=== PATIENT | male | born 1980 | race Caucasian/White ===

== ENCOUNTER 2024-11-24 13:54 | Outpatient (AMB) | payer OTHER, SELFPAY ==
[2024-11-24 13:59] VITALS: BP 158/92; PULSE 85; O2SAT 98; BMI 43.3
--- NOTE | 2024-11-24 13:59 | MHC.PC.OV ---
Vital Signs 11/24/24 13:59 11/24/24 14:15 Height 6 ft 1 in Weight 328 lb BMI 43.3 BP 158/92 H 140/92 H Blood Pressure Location Lt brachial Lt brachial Position Sitting Sitting Pulse 85 Pulse Source Pulse Oximeter Pulse Oximetry (%) 98 Oxygen Delivery Method Room Air Intake Visit Reasons: establish care Allergies Penicillins Allergy (Severe, Verified 11/24/24 14:04) Unknown Medication List - Last Reconciled 11/24/24 by Maxi Moura MD blood pressure monitor (Blood Pressure Kit) As directed fluoxetine (Prozac) 20 mg PO DAILY omeprazole 20 mg PO DAILY Tobacco use date assessed: 11/24/24 Dental Screening Dental Screen Date: 11/24/24 Did you have a dental visit in the last 12 months?: No Did you have a dental problem in the last 6 months where you did not have access to dental care?: No Was dental information given to patient?: No PFSH Family History (Updated 11/24/24 @ 14:22 by Maxi Moura MD) Mother Hypertension Father Heart attack Pancreatic cancer Son No problems noted. Son No problems noted. Son No problems noted. Daughter No problems noted. Daughter No problems noted. Maternal Grandfather Heart attack Paternal Grandfather Heart attack Social History (Updated 11/24/24 @ 14:25 by Maxi Moura MD) Housing: Other Housing Other:: Residential Alcohol intake: current Comment: 2-3 a month2-3 drinks Patient Tobacco Use Status: Former Tobacco user Tobacco use type: Cigarette Years Smoked: quit 2009 smoked for 21 years. smoke pot e-Cigarette/Vaping Use: Former Use Second Hand Smoke Exposure: Yes service: No Current occupational status: unemployed Current occupational exposures/hazards: No Cognitive needs: No Hearing needs: No Vision needs: No Questionnaire PHQ-9 Over the last 2 weeks, how often have you been bothered by any of the following problems? 1. Little interest or pleasure in doing things: more than half the days 2. Feeling down, depressed, or hopeless: more than half the days 3. Trouble falling or staying asleep, or sleeping too much: several days 4. Feeling tired or having little energy: several days 5. Poor appetite or overeating: not at all 6. Feeling bad about yourself - or that you are a failure or have let yourself or your family down: several days 7. Trouble concentrating on things, such as reading the newspaper or watching television: not at all 8. Moving or speaking so slowly that other people could have noticed. Or the opposite - being so fidgety or restless that you have been moving around a lot more than usual: not at all 9. Thoughts that you would be better off or of hurting yourself in some way: not at all Total score: 7 Depression Screening Interpretation: Positive Depression Screening Done: Yes Source: Developed by Drs. Vamsi Linn, Cyn Atkinson, Aniceto Cuellar and colleagues, with an educational liv from [employer]. Thrive Questionnaire Date Thrive assessed: 11/24/24 I am a: Patient What is your living situation today?: I have a steady place to live Within the past 12 months, did the food you bought not last and you didn't have the money to get more?: Sometimes True Within the past 12 months, did you worry whether your food would run out before you got money to buy more?: Sometimes True Do you have trouble paying for medicines?: Yes Do you have trouble getting transportation to medical appointments?: Yes Do you have trouble paying your heating and electricity bill?: No Do you have trouble taking care of your child, family member or friend?: No Do you have trouble with day-to-day activities such as bathing, preparing meals, shopping, managing finances, etc.?: No Are you currently unemployed and looking for a job?: No Are you interested in more education?: No Please select the resources that you would like help with: Housing/Residential and Transportation Currently or been in a relationship where the following occur: No concerns reported THRIVE Score: 3 AUDIT C Alcohol Use Questionnaire (AUDIT-C) 1. How often do you have a drink containing alcohol?: 2-4 times a month 2. How many drinks containing alcohol do you have on a typical day when you are drinking?: 3 or 4 3. How often do you have six or more drinks on one occasion?: Less than monthly Total Score: 4 KARLA-7 AMB Questionnaire KARLA-7 Date KARLA - 7 assessed: 11/24/24 Feeling nervous, anxious, or on edge: 1 = Several days Not being able to stop or control worryin = Several days Worrying too much about different things: 1 = Several days Trouble relaxin = Several days Being so restless that it is hard to sit still: 1 = Several days Becoming easily annoyed or irritable: 1 = Several days Feeling afraid as if something awful might happen: 1 = Several days Total KARLA-7 score (0-4 normal; 5-9 mild; 10-14 moderate; 15-21 severe): 7 Source: Developed by Drs. Vamsi Linn, Cyn Atkinson, Aniceto Cuellar and colleagues, with an educational liv from [employer]. KARLA-7 Assessment Billing KARLA-7 Assessment Tool: KARLA-7 Assessment 23232 Physical exam (Primary Care) Vital Signs: Last Vital Signs Pulse 85 11/24/24 13:59 BP 140/92 H 11/24/24 14:15 Pulse Ox 98 11/24/24 13:59 Oxygen Delivery Method Room Air 11/24/24 13:59 BMI result Body Mass Index 43.3 Tobacco/Smoking Status: Tobacco use Status Tobacco use date assessed 11/24/24 11/24/24 14:10 Patient Tobacco Use Status Former Tobacco user 11/24/24 14:25 Tobacco use type Cigarette 11/24/24 14:25 e-Cigarette/Vaping Use Former Use 11/24/24 14:25 PHQ-9: PHQ-9 Score PHQ-9: Total score 7 11/24/24 17:46 Depression Screening Interpretation: Positive Thrive Assessment: Date of Thrive Assessment Date Thrive assessed 11/24/24 11/24/24 14:10 Currently or been in a relationship where the following occur: No concerns reported Const General: alert; No acute distress Eyes Conjunctivae: conjunctivae normal Resp Auscultation: clear to auscultation bilaterally Cardio Rate: regular rate Rhythm: regular rhythm GI Inspection: Yes normal to inspection Extrem General: Yes normal to inspection and No edema Coding Level of Care Code New Pt Level 4 (55309) Diagnoses Morbid obesity E66.01 Generalized anxiety disorder F41.1 GERD (gastroesophageal reflux disease) K21.9 Colon cancer screening Z12.11 Hypertension I10 Major depression F32.9 Hypersomnia G47.10 Additional Codes KARLA-7 Assessment Billing - KARLA-7 Assessment Tool: KARLA-7 Assessment 71725 ([id number]) Assessment & Plan Assessment & Plan (1) Morbid obesity: Code(s): E66.01 - Morbid (severe) obesity due to excess calories Category: Medical Plan: Diet and exercise (2) Generalized anxiety disorder: Code(s): F41.1 - Generalized anxiety disorder Category: Medical Plan: Continue with present medication and discussed about counseling and therapy (3) GERD (gastroesophageal reflux disease): Code(s): K21.9 - Gastro-esophageal reflux disease without esophagitis Category: Medical Plan: Avoid the foods that causes that usually spicy foods, tomato products, juices, coffee, soda and foods that your sensitive to. After eating do not lie down, allow 3-4 hours before in lie down. And keep the head of bed above 30 degrees to avoid the acid from going up. (4) Colon cancer screening: Code(s): Z12.11 - Encounter for screening for malignant neoplasm of colon Category: Medical Plan: Patient is reminded about colonoscopy (5) Hypertension: Code(s): I10 - Essential (primary) hypertension Category: Medical (6) Major depression: Comment: [facility]- Code(s): F32.9 - Major depressive disorder, single episode, unspecified Category: Medical (7) Hypersomnia: Code(s): G47.10 - Hypersomnia, unspecified Category: Medical Plan History of Present Illness The patient is a 44-year-old male presenting for management of multiple chronic conditions including systemic lupus erythematosus, generalized anxiety disorder, major depressive disorder, gastroesophageal reflux disease, and hypertension. The patient has a history of systemic lupus erythematosus, which has been a longstanding condition. He is also concerned about obesity, which he acknowledges as a contributing factor to his hypertension and overall health. The patient has been diagnosed with generalized anxiety disorder and major depressive disorder, for which he is currently on medication. He reports attending therapy sessions once a week at [facility]. The patient is also managing gastroesophageal reflux disease with omeprazole. He has been advised to continue his current medication regimen and consider dietary modifications to manage symptoms. Hypertension is a significant concern, with a recent blood pressure reading of 140/92 mmHg. The patient does not monitor his blood pressure at home but has been advised to obtain a home blood pressure monitor. The patient has a family history of heart disease, with both his father and grandfather having suffered heart attacks. He also reports a family history of pancreatic cancer and glaucoma. The patient has a history of smoking, having quit 15 years ago, and currently uses marijuana. He consumes alcohol occasionally, averaging two to three drinks per occasion. Preventative care measures discussed include colon cancer screening, for which he has been reminded to undergo a stool test. Health Maintenance - Colon cancer screening: Patient reminded to undergo stool test. - Blood pressure monitoring: Advised to obtain a home blood pressure monitor. - Dietary modifications: Discussed reducing salt intake and increasing plant-based proteins. - Exercise: Encouraged to engage in regular physical activity despite current living situation challenges. Social History - Family: Lives with spouse and children, including four teenagers and one younger child. - Substance Use: Former smoker, currently uses marijuana, and consumes alcohol occasionally. - Exercise: Limited due to living on the fifth floor, making it difficult to engage in regular physical activity. - Diet: Attempts to reduce salt intake and increase plant-based proteins. Review of Systems - Cardiovascular: Reports hypertension. Denies chest pain or palpitations. - Gastrointestinal: Reports gastroesophageal reflux disease. Denies constipation, reports diarrhea. - Neurological: Denies seizures, reports passing out episodes related to coughing. - Respiratory: Reports coughing episodes leading to syncope. - Musculoskeletal: Reports ankle swelling, especially on the right side. - Psychological: Reports anxiety and depression. Physical Exam General: Cooperative, healthy appearing, comfortable, no acute distress and well developed Orientation: Patient oriented x3 Limitations: No limitations Head: Normal to inspection Ears: Hearing grossly normal bilaterally Nose: Normal external nose present Face and sinus: Normal facial exam Eyes: Appearance normal, both eyes and all related structures Neck: Normal visual inspection and Yes full ROM Respiratory: Normal respiratory effort and able to speak in complete sentences. Clear to auscultation bilaterally Cardiovascular: Regular rate and rhythm. Normal S1 and S2 GI: Normal to inspection. Soft to palpation and nontender. Reports diarrhea, no constipation Skin: No rashes or lesions noted Neuro: Patient oriented x3 Extremities: Normal to inspection. Reports swelling in the right ankle, especially after consuming energy drinks. Results Plan Patient was informed and verbally consented to the use of an ambient scribe for clinic note documentation during this visit. 1. Systemic Lupus Erythematosus The patient will continue current management for systemic lupus erythematosus, with regular follow-ups to monitor disease activity and adjust treatment as necessary. 2. Generalized Anxiety Disorder The patient is advised to continue current medications for anxiety and attend weekly therapy sessions at [facility]. 3. Major Depressive Disorder The patient will maintain current antidepressant therapy and continue weekly therapy sessions. 4. Gastroesophageal Reflux Disease (Gerd) The patient is advised to continue omeprazole and consider dietary modifications to manage symptoms of GERD. 5. Obesity The patient is encouraged to engage in regular physical activity and consider dietary changes to address obesity. 6. Hypertension The patient is advised to obtain a home blood pressure monitor and monitor readings regularly. Dietary modifications and weight management are recommended to help control blood pressure. 7. Sleep Apnea (Suspected) The patient is advised to undergo a sleep study to confirm the diagnosis of sleep apnea and determine appropriate management. 8. Preventative Care: Colon Cancer Screening With Stool Test The patient is reminded to complete the stool test for colon cancer screening as part of preventative care measures. Discussion Notes During the visit, we discussed the management of the patient's chronic conditions, including systemic lupus erythematosus, generalized anxiety disorder, major depressive disorder, gastroesophageal reflux disease, and hypertension. We emphasized the importance of regular monitoring and adherence to prescribed medications. Preventative care measures, such as colon cancer screening, were also highlighted. Patient Instructions - Continue taking all prescribed medications as directed. - Attend weekly therapy sessions at [facility]. - Obtain a home blood pressure monitor and check blood pressure regularly. - Complete the stool test for colon cancer screening. - Engage in regular physical activity and consider dietary changes to manage weight and blood pressure. Orders: Orders Complete Blood Count Auto Diff Today K21.9 - Gastro-esophageal reflux disease without esophagitis Comprehensive Met. Panel Today K21.9 - Gastro-esophageal reflux disease without esophagitis Free T4 (Free Thyroxine) Today K21.9 - Gastro-esophageal reflux disease without esophagitis Thyroid Stimulating Hormone Today K21.9 - Gastro-esophageal reflux disease without esophagitis UA CC w/rflx Micro + Cult Today K21.9 - Gastro-esophageal reflux disease without esophagitis, R30.0 - Dysuria Lipid Panel Today E78.00 - Pure hypercholesterolemia, unspecified, K21.9 - Gastro-esophageal reflux disease without esophagitis Vitamin B12 and Folate Today K21.9 - Gastro-esophageal reflux disease without esophagitis RT home sleep study Today G47.10 - Hypersomnia, unspecified Hemoglobin A1c Today K21.9 - Gastro-esophageal reflux disease without esophagitis Referrals Cologuard Test Z12.11 - Encounter for screening for malignant neoplasm of colon Medications: New blood pressure monitor (Blood Pressure Kit) As directed 1 ea 0RF I10 - Essential (primary) hypertension
[2024-11-24 14:15] VITALS: BP 140/92
== END 2024-11-24 14:53 | disposition home or self-care (01) ==
LOC: HO.HMCH 13:55
PROVIDERS: PCP Internal Medicine; Visit Provider Internal Medicine
DX: K21.9 Gastro-esophageal reflux disease without esophagitis (principal); E66.01 Morbid (severe) obesity due to excess calories; Z68.41 Body mass index [BMI] 40.0-44.9, adult; F41.1 Generalized anxiety disorder; Z12.11 Encounter for screening for malignant neoplasm of colon; I10 Essential (primary) hypertension; F32.9 Major depressive disorder, single episode, unspecified; G47.10 Hypersomnia, unspecified

== ENCOUNTER → 2024-11-24 13:54 | Outpatient (BNVA) | payer OTHER, SELFPAY | PROVIDERS: PCP Internal Medicine; Visit Provider Internal Medicine | DX: F41.1 Generalized anxiety disorder (principal); E66.01 Morbid (severe) obesity due to excess calories; K21.9 Gastro-esophageal reflux disease without esophagitis; I10 Essential (primary) hypertension; F32.9 Major depressive disorder, single episode, unspecified; G47.10 Hypersomnia, unspecified; M32.9 Systemic lupus erythematosus, unspecified; Z87.891 Personal history of nicotine dependence; Z68.41 Body mass index [BMI] 40.0-44.9, adult | CPT/HCPCS: 96127; 99202 ==